=== PATIENT | female | born 1945 | race Caucasian/White ===

== ENCOUNTER → 2017-11-17 | Outpatient (CLI) | payer MEDICARE ==
[~2017-11-17] MED LIST: ASCO100019 PO; ASPI-496 PO; CALC1CAP8 PO; COQ PO; EVE1000C3 PO; FISH400C3 PO; GARL1CAP3 PO; Ginko Biloba PO; HYDR-3150 PO; L.AC1CAP6 PO; LOSA50TA7 PO; METH750T87 PO; OMEP-110 PO; OMNIPAQUE 350 MG/ML, 100ML BOTTLE ONE; RALO60TA PO; RED KRILL OIL PO; RED YEAST PO; SIMV40TA3 PO; VITA1TAB56 PO
== END | disposition home or self-care (01) ==
LOC: CFH 09:23
PROVIDERS: ATTEND Internal Medicine Cardiovascular Disease
DX: I65.23 Occlusion and stenosis of bilateral carotid arteries (principal); I34.0 Nonrheumatic mitral (valve) insufficiency; I34.8 Other nonrheumatic mitral valve disorders; I35.8 Other nonrheumatic aortic valve disorders; I10 Essential (primary) hypertension; E78.5 Hyperlipidemia, unspecified; Z87.891 Personal history of nicotine dependence
CPT/HCPCS: 70498; 93306; Q9967

== ENCOUNTER 2018-05-22 10:40 | Day surgery (SDC) | payer MEDICARE ==
[2018-05-21 08:51] VITALS: BP 151/83
[2018-05-21 09:27] LABS: ALANINE AMINOTRANSFERASE 37 U/L (12-78); ALBUMIN 3.8 g/dL (3.4-5.0); ANION GAP 4 mmol/L (5-15); CALCIUM 8.8 mg/dL (8.5-10.1); CHLORIDE 109 mmol/L (98-107); CREATININE 0.71 mg/dL (0.55-1.02)
[2018-05-21 09:29] LABS: ALKALINE PHOSPHATASE 55 U/L (45-117); BILIRUBIN,TOTAL 0.3 mg/dL (0.2-1.0); TOTAL PROTEIN 6.6 g/dL (6.4-8.2)
[~2018-05-22] VITALS: Ht 149.9 cm; Wt 54.5 kg
[~2018-05-22 10:40] MED LIST changes: +AMLO-150 PO; +BETA2500 PO; +CALCIUM D PO; +CHOL200024 PO; +LOSA50TA14 PO; -LOSA50TA7 PO; +MAGNESIUM MALATE PO; +MULT-516 PO; +OMEG1CAP6 PO; -OMNIPAQUE 350 MG/ML, 100ML BOTTLE ONE; +ROSU40TA PO; +TIZA4TAB PO; +TRAM50TA2 PO
[2018-05-22] MEDS ORDERED: LACTATED RINGERS 1,000 ML IV SCH (11:07)
[2018-05-22] MEDS ORDERED: APREPITANT 40 MG CAPSULE ONE ×2 (11:16→11:54)
[2018-05-22] MEDS ORDERED: ROPIvacaine/PF 0.5%, 30 ML ONE (11:50)
[2018-05-22] MEDS ORDERED: FENTANYL PF 250 MCG/5ML ONE (11:51)
[2018-05-22] MEDS ORDERED: MIDAZOLAM 1 MG/ML, 2ML ONE (11:51)
[2018-05-22] MEDS ORDERED: cloniDINE/PF 100 MCG/ML, 10 ML ONE (11:55)
[2018-05-22] MEDS ORDERED: PROPOFOL 10 MG/ML, 20ML ONE (12:17)
[2018-05-22] MEDS ORDERED: hydrALAzine 20 MG/ML, 1ML IV PRN (12:30)
[2018-05-22] MEDS ORDERED: OXYcodone 5 MG/5 ML ORAL.SOL UDC PO PRN (12:30)
[2018-05-22] MEDS ORDERED: MORPHINE SULFATE 4 MG/ML, 1ML IVPush PRN (12:30)
[2018-05-22] MEDS ORDERED: PROMETHAZINE 25 MG/ML, 1ML IV PRN (12:30)
[2018-05-22] MEDS ORDERED: ACETAMINOPHEN 325 MG TABLET PO PRN (12:30)
[2018-05-22] MEDS ORDERED: HALOPERIDOL 5 MG/ML IV PRN (12:30)
[2018-05-22] MEDS ORDERED: FENTANYL PF 100 MCG/2ML IV PRN (12:30)
[2018-05-22] MEDS ORDERED: MEPERIDINE/PF 25MG/0.5ML IVPush PRN (12:30)
[2018-05-22] MEDS ORDERED: WATER-INJECTION,STERILE 10 ML IV ONE (13:19)
[2018-05-22] MEDS ORDERED: ONDANSETRON 2MG/ML, 2ML ONE (13:19)
[2018-05-22] MEDS ORDERED: CEFAZOLIN 1,000 MG ONE (13:19)
[2018-05-22] MEDS ORDERED: DEXAMETHASONE 4 MG/ML, 5ML ONE (13:19)
[2018-05-22] MEDS ORDERED: BUPIVACAINE/PF-EPI 0.5% 1:200K ONE (13:26)
[2018-05-22] MEDS ORDERED: PROMETHAZINE 25 MG/ML, 1ML ONE (14:31)
== END 2018-05-22 18:15 | disposition home or self-care (01) ==
LOC: OUT 10:40
PROVIDERS: ATTEND Orthopaedic Surgery
DX: M19.042 Primary osteoarthritis, left hand (principal); M65.332 Trigger finger, left middle finger
CPT/HCPCS: 26055; 26531; 36415; 64415; 73140; 76000; 80053; 93005; C1776; J0690; J0735; J1100; J2250; J2405; J2550; J2704; J2795; J3010; J7120; J8501

== ENCOUNTER → 2019-01-18 | Outpatient (CLI) | payer MEDICARE ==
[~2019-01-18] MED LIST changes: -TIZA4TAB PO; +TIZA4TAB2 PO
== END | disposition home or self-care (01) ==
LOC: CFH 11:48
PROVIDERS: ATTEND Internal Medicine
DX: Z12.31 Encounter for screening mammogram for malignant neoplasm of breast (principal); N64.89 Other specified disorders of breast; Z87.891 Personal history of nicotine dependence
CPT/HCPCS: 77067